=== PATIENT | male | born 1975 | race Caucasian/White ===

== ENCOUNTER 2019-08-16 17:13 | Emergency (ER) | payer SELFPAY ==
[~2019-08-16] VITALS: Ht 175.2 cm; Wt 156.5 kg
[~2019-08-16 17:13] MED LIST: AUGMENTIN 875 M1 TAB PO; CIPRODEX 0.3%-7.5 ML OT; CLARITIN10 MG PO; KEFLEX500 MG PO; LEVAQUIN750 MG PO; VICODIN 5/500 505 MG PO; VICODIN ES 7501 TAB PO
[2019-08-16 19:38] LABS: BILIRUBIN 1+ (NEGATIVE); BLOOD TRACE-INTACT (NEGATIVE); CLARITY SL CLOUDY (CLEAR); COLOR YELLOW (YELLOW); GLUCOSE NEGATIVE (NEGATIVE); KETONE NEGATIVE (NEGATIVE); LEUKO ESTERASE TRACE (NEGATIVE); NITRITE NEGATIVE (NEGATIVE); PH 5.5 (5.0-9.0); SPECIFIC GRAVITY >= 1.030 (1.005-1.030)
[2019-08-16 19:47] LABS: BACTERIA 3+; WBC TNTC wbc/hpf (0-5)
[2019-08-16] MEDS ORDERED: NAPROSYN500 MG PO (20:07)
== END 2019-08-16 20:11 | disposition home or self-care (01) ==
LOC: ED 17:13
PROVIDERS: Nurse Practitioner Family
DX: B34.9 Viral infection, unspecified (principal); Z91.040 Latex allergy status